=== PATIENT | female | born 1960 | race Caucasian/White ===

== ENCOUNTER 2018-09-28 03:55 | Inpatient (IN) | payer OTHER ==
[2018-09-28] MEDS ORDERED: NACL 0.9% 3 ML SYG IV (06:00)
[2018-09-28] MEDS ORDERED: ONDANSETRON 4 MG INJ IV (06:00)
[2018-09-28] MEDS ORDERED: NITROGLYCERIN (SL) 0.4 MG TAB SL (06:00)
[2018-09-28] MEDS ORDERED: ACETAMINOPHEN 325 MG TAB PO (06:00)
[2018-09-28] MEDS ORDERED: ALBUTEROL/IPRATROPIUM (NEB) 3 ML AMP HHN (06:00)
[2018-09-28 06:28] LABS: ADD MAN DIFF? NO
[2018-09-28 06:33] LABS: BASOPHILS % 0.4 % (0.0-2.0); EOSINOPHILS # 0.1 10^3/ul (0.0-0.5); EOSINOPHILS % 0.9 % (0.0-7.0); HEMATOCRIT 38.2 % (37.0-47.0); HEMOGLOBIN 12.7 g/dl (12.0-16.0); LYMPHOCYTES # 1.6 10^3/ul (0.8-2.9); LYMPHOCYTES % 21.9 % (15.0-51.0); MEAN CORPUSCULAR HEMOGLOBIN 28.9 pg (29.0-33.0); MEAN CORPUSCULAR HGB CONC 33.2 g/dl (32.0-37.0); MEAN PLATELET VOLUME 11.9 fl (7.4-10.4); MONOCYTE # 0.4 10^3/ul (0.3-0.9); MONOCYTES % 4.7 % (0.0-11.0); NEUTROPHIL # 5.3 10^3/ul (1.6-7.5); NEUTROPHILS % 71.8 % (39.0-77.0); PLATELET COUNT 268 10^3/UL (140-415); RED BLOOD COUNT 4.39 10^6/ul (4.20-5.40); RED CELL DISTRIBUTION WIDTH 13.2 % (11.5-14.5)
[2018-09-28 06:33] LABS: WHITE BLOOD COUNT 7.4 10^3/ul (4.8-10.8)
[2018-09-28 06:58] LABS: CREATINE KINASE 36 IU/L (23-200)
[2018-09-28 07:05] LABS: ALANINE AMINOTRANSFERASE 21 IU/L (13-69); ALBUMIN 4.1 g/dl (3.3-4.9); ALBUMIN/GLOBULIN RATIO 1.28; ALKALINE PHOSPHATASE 36 IU/L (42-121); ANION GAP 9 (5-13); ASPARTATE AMINO TRANSFERASE 17 IU/L (15-46); BILIRUBIN,INDIRECT 0.4 mg/dl (0-1.1); BILIRUBIN,TOTAL 0.4 mg/dl (0.2-1.3); BLOOD UREA NITROGEN 15 mg/dl (7-20); CALCIUM 9.7 mg/dl (8.4-10.2); CARBON DIOXIDE 28 mmol/L (21-31); CHLORIDE 106 mmol/L (97-110); CHOL/HDL RATIO 5.7 RATIO; CHOLESTEROL 212 mg/dl (100-200); CREATININE 0.67 mg/dl (0.44-1.00); Estimated GFR > 60 mL/min (>60); GLUCOSE 113 mg/dl (70-220); HDL CHOLESTEROL 37 mg/dl (35-98); LDL CHOLESTEROL,CALCULATED 156 mg/dl; POTASSIUM 4.1 mmol/L (3.5-5.1); SODIUM 143 mmol/L (135-144); TOTAL PROTEIN 7.3 g/dl (6.1-8.1); TRIGLYCERIDES 97 mg/dl (0-149)
[2018-09-28 07:12] LABS: CK INDEX 1.1; CK-MB 0.38 ng/ml (0.0-2.4); TROPONIN-I < 0.012 ng/ml (0.000-0.120)
[2018-09-28 07:31] LABS: HEMOGLOBIN A1C 5.5 % (0-5.9)
[2018-09-28] MEDS: ESCITALOPRAM 10 MG TAB PO (08:27)
[2018-09-28] MEDS: ASPIRIN 81 MG TAB PO (08:28)
[2018-09-28] MEDS: ENOXAPARIN 40 MG/0.4 ML SYG SC (08:35)
[2018-09-28] MEDS ORDERED: hydrALAzine 20 MG INJ IV (11:00)
[2018-09-28 12:02] LABS: CREATINE KINASE 36 IU/L (23-200)
[2018-09-28 12:23] LABS: CK-MB 0.36 ng/ml (0.0-2.4); TROPONIN-I < 0.012 ng/ml (0.000-0.120)
[2018-09-28 12:30] LABS: CREATINE KINASE 35 IU/L (23-200)
[2018-09-28] MEDS: METOPROLOL 50 MG TAB PO (12:33)
[2018-09-28 12:42] LABS: CK INDEX 1.1; TROPONIN-I < 0.012 ng/ml (0.000-0.120)
[2018-09-28] MEDS ORDERED: METOPROLOL 5 MG INJ (13:59)
[2018-09-28] MEDS ORDERED: NITROGLYCERIN AEROSOL (4.9 GM) (13:59)
[2018-09-28] MEDS: SOD CHLORIDE 0.9% 100 ML (14:15)
[2018-09-28] MEDS: IOHEXOL 100 ML (14:15)
[2018-09-28] MEDS ORDERED: ZOLPIDEM 5 MG TAB (21:43)
[2018-09-28] MEDS: ZOLPIDEM 5 MG TAB PO (22:03)
[2018-09-28] MEDS: ATORVASTATIN 20 MG TAB PO (22:03)
[2018-09-29 06:07] LABS: ADD MAN DIFF? NO
[2018-09-29 06:09] LABS: WHITE BLOOD COUNT 5.7 10^3/ul (4.8-10.8)
[2018-09-29 06:09] LABS: BASOPHILS % 0.5 % (0.0-2.0); EOSINOPHILS # 0.1 10^3/ul (0.0-0.5); EOSINOPHILS % 1.4 % (0.0-7.0); HEMATOCRIT 36.6 % (37.0-47.0); HEMOGLOBIN 12.3 g/dl (12.0-16.0); LYMPHOCYTES # 2.3 10^3/ul (0.8-2.9); LYMPHOCYTES % 40.7 % (15.0-51.0); MEAN CORPUSCULAR HEMOGLOBIN 29.4 pg (29.0-33.0); MEAN CORPUSCULAR HGB CONC 33.6 g/dl (32.0-37.0); MEAN CORPUSCULAR VOLUME 87.4 fl (82.0-101.0); MEAN PLATELET VOLUME 11.5 fl (7.4-10.4); MONOCYTE # 0.3 10^3/ul (0.3-0.9); MONOCYTES % 5.9 % (0.0-11.0); NEUTROPHIL # 2.9 10^3/ul (1.6-7.5); NEUTROPHILS % 51.3 % (39.0-77.0); PLATELET COUNT 260 10^3/UL (140-415); RED BLOOD COUNT 4.19 10^6/ul (4.20-5.40); RED CELL DISTRIBUTION WIDTH 13.6 % (11.5-14.5)
[2018-09-29 06:48] LABS: ANION GAP 9 (5-13); BLOOD UREA NITROGEN 15 mg/dl (7-20); CALCIUM 9.3 mg/dl (8.4-10.2); CARBON DIOXIDE 27 mmol/L (21-31); CHLORIDE 107 mmol/L (97-110); CREATININE 0.69 mg/dl (0.44-1.00); Estimated GFR > 60 mL/min (>60); GLUCOSE 103 mg/dl (70-220); MAGNESIUM 2.2 mg/dl (1.7-2.5); POTASSIUM 3.7 mmol/L (3.5-5.1); SODIUM 143 mmol/L (135-144)
[2018-09-29] MEDS: ENOXAPARIN 40 MG/0.4 ML SYG SC (08:52)
[2018-09-29] MEDS: ESCITALOPRAM 10 MG TAB PO (08:55)
[2018-09-29] MEDS: ASPIRIN 81 MG TAB PO (08:55)
[2018-09-29] MEDS ORDERED: DIAZEPAM 5 MG TAB PO (11:00)
[2018-09-29] MEDS ORDERED: FENTAnyl 50 MCG/ML VIAL (11:55)
[2018-09-29] MEDS ORDERED: LIDOCAINE 1% (MDV) 20 ML INJ (11:55)
[2018-09-29] MEDS ORDERED: HEPARIN 1000 UNITS/ML 10 ML INJ (11:55)
[2018-09-29] MEDS ORDERED: VERAPAMIL 5 MG INJ (11:55)
[2018-09-29] MEDS ORDERED: IODIXANOL LOCM 100 ML BTL (11:55)
[2018-09-29] MEDS ORDERED: MIDAZOLAM 1 MG/ML 2 ML INJ (11:55)
[2018-09-29] MEDS ORDERED: NITROGLYCERIN (IC) 100 MCG/ML INJ (11:56)
[2018-09-29] MEDS: SOD CHLORIDE 0.9% 1,000 ML IV (13:34)
== END 2018-09-29 17:28 | disposition home or self-care (01) | DRG 287 ==
LOC: 6WM 03:55
PROC: 4A023N7 Measurement of Cardiac Sampling and Pressure, Left Heart, Percutaneous Approach (ICD-10-PCS; principal; 2018-09-29)
PROC: B2011ZZ Plain Radiography of Multiple Coronary Arteries using Low Osmolar Contrast (ICD-10-PCS; 2018-09-29)
PROC: B2051ZZ Plain Radiography of Left Heart using Low Osmolar Contrast (ICD-10-PCS; 2018-09-29)
DX: R07.9 Chest pain, unspecified (principal); Z68.41 Body mass index [BMI] 40.0-44.9, adult; E66.01 Morbid (severe) obesity due to excess calories; F32.9 Major depressive disorder, single episode, unspecified; R06.02 Shortness of breath; F41.9 Anxiety disorder, unspecified; I25.10 Atherosclerotic heart disease of native coronary artery without angina pectoris
CPT/HCPCS: 71046; 75574; 80048; 80053; 80061; 82550; 82553; 83036; 83735; 84100; 84443; 84484; 85025; 87081; 93005; 93306; 93458; 97162

== ENCOUNTER 2018-10-11 08:31 | Inpatient (IN) | payer OTHER ==
[2018-10-11 09:24] LABS: ADD MAN DIFF? NO
[2018-10-11] MEDS: LACTATED RINGER'S 1,000 ML IV (09:24)
[2018-10-11] MEDS: ONDANSETRON 4 MG INJ IV (09:24)
[2018-10-11] MEDS: KETOROLAC 15 MG INJ IV (09:25)
[2018-10-11 09:27] LABS: BASOPHILS % 0.3 % (0.0-2.0); EOSINOPHILS # 0.1 10^3/ul (0.0-0.5); EOSINOPHILS % 0.9 % (0.0-7.0); HEMATOCRIT 36.9 % (37.0-47.0); HEMOGLOBIN 12.4 g/dl (12.0-16.0); LYMPHOCYTES # 1.6 10^3/ul (0.8-2.9); LYMPHOCYTES % 22.5 % (15.0-51.0); MEAN CORPUSCULAR HEMOGLOBIN 29.6 pg (29.0-33.0); MEAN CORPUSCULAR HGB CONC 33.6 g/dl (32.0-37.0); MEAN CORPUSCULAR VOLUME 88.1 fl (82.0-101.0); MEAN PLATELET VOLUME 11.6 fl (7.4-10.4); MONOCYTE # 0.5 10^3/ul (0.3-0.9); MONOCYTES % 6.7 % (0.0-11.0); NEUTROPHIL # 4.8 10^3/ul (1.6-7.5); NEUTROPHILS % 69.3 % (39.0-77.0); PLATELET COUNT 252 10^3/UL (140-415); RED BLOOD COUNT 4.19 10^6/ul (4.20-5.40); RED CELL DISTRIBUTION WIDTH 13.1 % (11.5-14.5)
[2018-10-11 09:33] LABS: INR 1.52; PROTIME 18.4 Sec (11.9-14.9); PT RATIO 1.4
[2018-10-11 09:58] LABS: ALANINE AMINOTRANSFERASE 136 IU/L (13-69); ALBUMIN 4.1 g/dl (3.3-4.9); ALKALINE PHOSPHATASE 113 IU/L (42-121); ANION GAP 10 (5-13); ASPARTATE AMINO TRANSFERASE 242 IU/L (15-46); BILIRUBIN,INDIRECT 0.5 mg/dl (0-1.1); BILIRUBIN,TOTAL 0.5 mg/dl (0.2-1.3); BLOOD UREA NITROGEN 14 mg/dl (7-20); CARBON DIOXIDE 26 mmol/L (21-31); CHLORIDE 106 mmol/L (97-110); CREATININE 0.76 mg/dl (0.44-1.00); Estimated GFR > 60 mL/min (>60); GLUCOSE 124 mg/dl (70-220); LIPASE 95 U/L (23-300); POTASSIUM 4.1 mmol/L (3.5-5.1); SODIUM 142 mmol/L (135-144); TOTAL PROTEIN 7.8 g/dl (6.1-8.1)
[2018-10-11 10:09] LABS: TROPONIN-I < 0.012 ng/ml (0.000-0.120)
[2018-10-11 12:04] LABS: ADD UMIC YES; UR ASCORBIC ACID NEGATIVE (NEGATIVE); UR BACTERIA MANY /HPF (NONE SEEN); UR BILIRUBIN (Dip) NEGATIVE (NEGATIVE); UR BLOOD (Dip) NEGATIVE (NEGATIVE); UR CLARITY SLIGHTLY CLOUDY (CLEAR); UR COLOR YELLOW (YELLOW); UR GLUCOSE (Dip) NEGATIVE (NEGATIVE); UR KETONES (Dip) NEGATIVE (NEGATIVE); UR LEUKOCYTE ESTERASE (Dip) TRACE Leu/ul (NEGATIVE); UR MUCUS FEW /HPF (NONE SEEN); UR NITRITE (Dip) NEGATIVE (NEGATIVE); UR RBC 1 /HPF (0-5); UR SPECIFIC GRAVITY (Dip) 1.004 (1.003-1.030); UR SQUAMOUS EPITHELIAL CELL FEW /HPF (FEW); UR TOTAL PROTEIN (Dip) NEGATIVE (NEGATIVE); UR UROBILINOGEN (Dip) 2+ mg/dL (NEGATIVE); UR WBC 4 /HPF (0-5)
[2018-10-11] MEDS ORDERED: NITROGLYCERIN (SL) 0.4 MG TAB SL (14:30)
[2018-10-11] MEDS ORDERED: hydrALAzine 20 MG INJ IV (14:30)
[2018-10-11] MEDS ORDERED: NACL 0.9% 3 ML SYG IV (14:30)
[2018-10-11] MEDS ORDERED: DOCUSATE SODIUM 100 MG CAP PO (14:30)
[2018-10-11] MEDS ORDERED: ALBUTEROL/IPRATROPIUM (NEB) 3 ML AMP HHN (14:30)
[2018-10-11] MEDS ORDERED: MAGNESIUM HYDROXIDE 30ML CUP PO (14:30)
[2018-10-11] MEDS ORDERED: LORAZEPAM 2 MG INJ IV (14:30)
[2018-10-11] MEDS ORDERED: ACETAMINOPHEN 325 MG TAB PO (14:30)
[2018-10-11 15:03] LABS: FREE T4 (FREE THYROXINE) 1.28 ng/dl (0.64-1.79)
[2018-10-11] MEDS: SOD CHLORIDE 0.45% 1,000 ML IV (15:17)
[2018-10-11] MEDS: CEFTRIAXONE 1 GM/50 ML (PMX) 50 ML IVPB (15:47)
[2018-10-11] MEDS: ATORVASTATIN 10 MG TAB PO (22:05)
[2018-10-11] MEDS: ATENOLOL 25 MG TAB PO (22:05)
[2018-10-11] MEDS: HEPARIN 5,000 UNIT/1 ML VIAL SC (22:20)
[2018-10-12] MEDS ORDERED: EPHEDrine 25 MG/5 ML SYG IV (01:10)
[2018-10-12] MEDS: SOD CHLORIDE 0.45% 1,000 ML IV ×3 (03:47→16:26)
[2018-10-12] MEDS: PANTOPRAZOLE (EC) 40 MG TAB PO (05:29)
[2018-10-12 05:34] LABS: ADD MAN DIFF? NO
[2018-10-12 05:36] LABS: BASOPHILS % 0.5 % (0.0-2.0); EOSINOPHILS # 0.1 10^3/ul (0.0-0.5); EOSINOPHILS % 1.9 % (0.0-7.0); HEMATOCRIT 33.9 % (37.0-47.0); HEMOGLOBIN 11.5 g/dl (12.0-16.0); LYMPHOCYTES # 1.3 10^3/ul (0.8-2.9); LYMPHOCYTES % 29.4 % (15.0-51.0); MEAN CORPUSCULAR HEMOGLOBIN 29.9 pg (29.0-33.0); MEAN CORPUSCULAR HGB CONC 33.9 g/dl (32.0-37.0); MEAN CORPUSCULAR VOLUME 88.3 fl (82.0-101.0); MEAN PLATELET VOLUME 12.1 fl (7.4-10.4); MONOCYTE # 0.2 10^3/ul (0.3-0.9); MONOCYTES % 5.1 % (0.0-11.0); NEUTROPHIL # 2.7 10^3/ul (1.6-7.5); NEUTROPHILS % 62.6 % (39.0-77.0); PLATELET COUNT 218 10^3/UL (140-415); RED BLOOD COUNT 3.84 10^6/ul (4.20-5.40); RED CELL DISTRIBUTION WIDTH 13.3 % (11.5-14.5)
[2018-10-12 05:36] LABS: WHITE BLOOD COUNT 4.3 10^3/ul (4.8-10.8)
[2018-10-12 05:48] LABS: HEMOGLOBIN A1C 5.4 % (0-5.9)
[2018-10-12 06:01] LABS: CHOL/HDL RATIO 2.9 RATIO; HDL CHOLESTEROL 35 mg/dl (35-98); LDL CHOLESTEROL,CALCULATED 50 mg/dl; TRIGLYCERIDES 85 mg/dl (0-149)
[2018-10-12 06:01] LABS: CHOLESTEROL 102 mg/dl (100-200)
[2018-10-12 06:03] LABS: ANION GAP 5 (5-13); BLOOD UREA NITROGEN 10 mg/dl (7-20); CALCIUM 8.4 mg/dl (8.4-10.2); CARBON DIOXIDE 29 mmol/L (21-31); CHLORIDE 107 mmol/L (97-110); CREATININE 0.82 mg/dl (0.44-1.00); Estimated GFR > 60 mL/min (>60); GLUCOSE 93 mg/dl (70-220); MAGNESIUM 2.1 mg/dl (1.7-2.5); PHOSPHORUS 3.3 mg/dl (2.5-4.9); POTASSIUM 3.7 mmol/L (3.5-5.1); SODIUM 141 mmol/L (135-144)
[2018-10-12] MEDS: ACETAMINOPHEN 500 MG TAB PO (06:33)
[2018-10-12] MEDS ORDERED: LIDOCAINE 2% (SDV) 5 ML INJ (07:23)
[2018-10-12] MEDS ORDERED: PROPOFOL 40 ML (07:23)
[2018-10-12] MEDS ORDERED: MIDAZOLAM 1 MG/ML 2 ML INJ (07:23)
[2018-10-12] MEDS ORDERED: ROPIVACAINE 0.5 % 30 ML VIAL (07:23)
[2018-10-12] MEDS ORDERED: FENTAnyl 50 MCG/ML VIAL (07:23)
[2018-10-12] MEDS ORDERED: ONDANSETRON 4 MG INJ (07:23)
[2018-10-12] MEDS ORDERED: ROCURONIUM 50 MG INJ (07:24)
[2018-10-12] MEDS ORDERED: FAMOTIDINE 20 MG INJ (07:24)
[2018-10-12] MEDS ORDERED: DIPHENHYDRAMINE 50 MG INJ IV (07:30)
[2018-10-12] MEDS ORDERED: morphine 2 MG INJ IV ×3 (07:30→09:00)
[2018-10-12] MEDS ORDERED: HYDROmorphONE 1 MG/5 ML IV SYRINGE IV ×3 (07:30)
[2018-10-12] MEDS ORDERED: ONDANSETRON 4 MG INJ IV ×2 (07:30→09:00)
[2018-10-12] MEDS ORDERED: OXYCODONE/ACETAMINOPHEN (5/325) TAB PO ×3 (07:30→09:00)
[2018-10-12] MEDS ORDERED: FENTAnyl 50 MCG/ML VIAL IV ×2 (07:30)
[2018-10-12] MEDS ORDERED: ALBUTEROL 0.083% (NEB) 2.5 MG/3 ML AMP HHN (07:30)
[2018-10-12] MEDS ORDERED: LABETALOL HCL 20MG INJ IV (07:30)
[2018-10-12] MEDS ORDERED: SUGAMMADEX SODIUM 200 MG/2 ML VIAL IV (07:56)
[2018-10-12] MEDS: BUPIVACAINE 0.25% (MPF) 30 ML INJ (08:05)
[2018-10-12] MEDS ORDERED: MAGNESIUM SULFATE 1 GM/D5W 100 ML (08:22)
[2018-10-12] MEDS: ATENOLOL 25 MG TAB PO ×2 (09:00→20:15)
[2018-10-12] MEDS: ESCITALOPRAM 10 MG TAB PO (09:00)
[2018-10-12] MEDS: POTASSIUM CHLORIDE (SR) 8 MEQ CAP PO (09:00)
[2018-10-12] MEDS: BUPROPION (SR) 150 MG TAB PO (09:00)
[2018-10-12] MEDS: HEPARIN 5,000 UNIT/1 ML VIAL SC ×2 (09:00→20:15)
[2018-10-12] MEDS: MEPERIDINE 25 MG INJ IV (09:27)
[2018-10-12] MEDS: ONDANSETRON 4 MG INJ IV (09:27)
[2018-10-12] MEDS: CEFTRIAXONE 1 GM/50 ML (PMX) 50 ML IVPB (14:56)
[2018-10-12] MEDS: HYDROCODONE/APAP (5/325) TAB PO (16:54)
[2018-10-12] MEDS: ATORVASTATIN 10 MG TAB PO (20:14)
[2018-10-12] MEDS ORDERED: ZOLPIDEM 5 MG TAB PO (21:00)
[2018-10-12] MEDS: OXYCODONE/ACETAMINOPHEN (5/325) TAB PO (21:53)
[2018-10-12] MEDS: morphine 2 MG INJ IV (23:13)
[2018-10-13] MEDS: HYDROCODONE/APAP (5/325) TAB PO ×2 (02:57→18:33)
[2018-10-13] MEDS: SOD CHLORIDE 0.45% 1,000 ML IV ×2 (02:58→19:47)
[2018-10-13 05:05] LABS: ADD MAN DIFF? NO
[2018-10-13 05:11] LABS: WHITE BLOOD COUNT 5.8 10^3/ul (4.8-10.8)
[2018-10-13 05:11] LABS: BASOPHILS % 0.3 % (0.0-2.0); EOSINOPHILS # 0.1 10^3/ul (0.0-0.5); EOSINOPHILS % 1.6 % (0.0-7.0); HEMATOCRIT 32.7 % (37.0-47.0); HEMOGLOBIN 10.7 g/dl (12.0-16.0); LYMPHOCYTES # 1.6 10^3/ul (0.8-2.9); MEAN CORPUSCULAR HEMOGLOBIN 29.4 pg (29.0-33.0); MEAN CORPUSCULAR HGB CONC 32.7 g/dl (32.0-37.0); MEAN CORPUSCULAR VOLUME 89.8 fl (82.0-101.0); MONOCYTE # 0.3 10^3/ul (0.3-0.9); MONOCYTES % 5.4 % (0.0-11.0); NEUTROPHIL # 3.7 10^3/ul (1.6-7.5); NEUTROPHILS % 64.5 % (39.0-77.0); PLATELET COUNT 209 10^3/UL (140-415); RED BLOOD COUNT 3.64 10^6/ul (4.20-5.40); RED CELL DISTRIBUTION WIDTH 13.3 % (11.5-14.5)
[2018-10-13 05:32] LABS: ALANINE AMINOTRANSFERASE 468 IU/L (13-69); ALBUMIN 3.3 g/dl (3.3-4.9); ALKALINE PHOSPHATASE 119 IU/L (42-121); ANION GAP 5 (5-13); ASPARTATE AMINO TRANSFERASE 258 IU/L (15-46); BILIRUBIN,INDIRECT 0.6 mg/dl (0-1.1); BILIRUBIN,TOTAL 0.6 mg/dl (0.2-1.3); BLOOD UREA NITROGEN 12 mg/dl (7-20); CALCIUM 8.2 mg/dl (8.4-10.2); CARBON DIOXIDE 29 mmol/L (21-31); CHLORIDE 107 mmol/L (97-110); CREATININE 0.76 mg/dl (0.44-1.00); Estimated GFR > 60 mL/min (>60); GLUCOSE 104 mg/dl (70-220); POTASSIUM 3.8 mmol/L (3.5-5.1); SODIUM 141 mmol/L (135-144); TOTAL PROTEIN 6.3 g/dl (6.1-8.1)
[2018-10-13] MEDS: PANTOPRAZOLE (EC) 40 MG TAB PO (06:00)
[2018-10-13] MEDS: HEPARIN 5,000 UNIT/1 ML VIAL SC ×2 (09:00→21:00)
[2018-10-13] MEDS: ESCITALOPRAM 10 MG TAB PO (09:46)
[2018-10-13] MEDS: ATENOLOL 25 MG TAB PO ×2 (09:46→22:19)
[2018-10-13] MEDS: POTASSIUM CHLORIDE (SR) 8 MEQ CAP PO (09:46)
[2018-10-13] MEDS: BUPROPION (SR) 150 MG TAB PO (09:46)
[2018-10-13] MEDS: OXYCODONE/ACETAMINOPHEN (5/325) TAB PO (12:03)
[2018-10-13] MEDS: CEFTRIAXONE 1 GM/50 ML (PMX) 50 ML IVPB (16:15)
[2018-10-13] MEDS: ATORVASTATIN 10 MG TAB PO (22:18)
[2018-10-13] MEDS: morphine 2 MG INJ IV (22:26)
[2018-10-14] MEDS: SOD CHLORIDE 0.45% 1,000 ML IV ×2 (00:04→09:07)
[2018-10-14] MEDS: PANTOPRAZOLE (EC) 40 MG TAB PO (05:55)
[2018-10-14 07:51] LABS: ADD MAN DIFF? NO
[2018-10-14 07:58] LABS: BASOPHILS % 0.5 % (0.0-2.0); EOSINOPHILS # 0.2 10^3/ul (0.0-0.5); EOSINOPHILS % 3.1 % (0.0-7.0); HEMATOCRIT 33.9 % (37.0-47.0); HEMOGLOBIN 11.1 g/dl (12.0-16.0); LYMPHOCYTES # 1.9 10^3/ul (0.8-2.9); LYMPHOCYTES % 29.1 % (15.0-51.0); MEAN CORPUSCULAR HEMOGLOBIN 29.4 pg (29.0-33.0); MEAN CORPUSCULAR HGB CONC 32.7 g/dl (32.0-37.0); MEAN CORPUSCULAR VOLUME 89.7 fl (82.0-101.0); MEAN PLATELET VOLUME 12.1 fl (7.4-10.4); MONOCYTE # 0.4 10^3/ul (0.3-0.9); MONOCYTES % 5.6 % (0.0-11.0); NEUTROPHIL # 3.9 10^3/ul (1.6-7.5); NEUTROPHILS % 61.4 % (39.0-77.0); PLATELET COUNT 238 10^3/UL (140-415); RED BLOOD COUNT 3.78 10^6/ul (4.20-5.40); RED CELL DISTRIBUTION WIDTH 13.1 % (11.5-14.5)
[2018-10-14 07:58] LABS: WHITE BLOOD COUNT 6.4 10^3/ul (4.8-10.8)
[2018-10-14 08:18] LABS: ANION GAP 7 (5-13); BLOOD UREA NITROGEN 9 mg/dl (7-20); CALCIUM 8.3 mg/dl (8.4-10.2); CARBON DIOXIDE 27 mmol/L (21-31); CHLORIDE 107 mmol/L (97-110); CREATININE 0.67 mg/dl (0.44-1.00); Estimated GFR > 60 mL/min (>60); GLUCOSE 104 mg/dl (70-220); POTASSIUM 3.8 mmol/L (3.5-5.1); SODIUM 141 mmol/L (135-144)
[2018-10-14] MEDS: HEPARIN 5,000 UNIT/1 ML VIAL SC (09:00)
[2018-10-14 09:06] LABS: ALANINE AMINOTRANSFERASE 307 IU/L (13-69); ALBUMIN 3.2 g/dl (3.3-4.9); ALKALINE PHOSPHATASE 120 IU/L (42-121); ASPARTATE AMINO TRANSFERASE 102 IU/L (15-46); BILIRUBIN,INDIRECT 0.4 mg/dl (0-1.1); BILIRUBIN,TOTAL 0.4 mg/dl (0.2-1.3); TOTAL PROTEIN 6.1 g/dl (6.1-8.1)
[2018-10-14] MEDS: BUPROPION (SR) 150 MG TAB PO (09:33)
[2018-10-14] MEDS: ATENOLOL 25 MG TAB PO (09:33)
[2018-10-14] MEDS: POTASSIUM CHLORIDE (SR) 8 MEQ CAP PO (09:33)
[2018-10-14] MEDS: ESCITALOPRAM 10 MG TAB PO (09:33)
== END 2018-10-14 10:35 | disposition home or self-care (01) | DRG 418 ==
LOC: E/R 08:31 → 2NE 10:44
PROC: 0FT44ZZ Resection of Gallbladder, Percutaneous Endoscopic Approach (ICD-10-PCS; principal; 2018-10-12 07:30)
DX: K81.0 Acute cholecystitis (principal); Z68.41 Body mass index [BMI] 40.0-44.9, adult; E66.01 Morbid (severe) obesity due to excess calories; F32.9 Major depressive disorder, single episode, unspecified; I10 Essential (primary) hypertension; I25.10 Atherosclerotic heart disease of native coronary artery without angina pectoris
CPT/HCPCS: 36415; 76705; 80048; 80053; 80061; 80076; 81001; 83036; 83690; 83735; 84100; 84439; 84443; 84484; 85025; 85610; 85730; 88304; 93005; 96374; 96375; 97162; 99285-25

== ENCOUNTER 2019-02-08 05:43 | Day surgery (SDC) | payer OTHER ==
[2019-02-08] MEDS ORDERED: PROPOFOL 40 ML (08:39)
[2019-02-08] MEDS ORDERED: KETAMINE (50 MG/ML) 10 ML VIAL (08:42)
== END 2019-02-08 18:06 | disposition home or self-care (01) ==
LOC: GIL 05:43
DX: Z12.11 Encounter for screening for malignant neoplasm of colon (principal); K64.8 Other hemorrhoids; K57.30 Diverticulosis of large intestine without perforation or abscess without bleeding; K44.9 Diaphragmatic hernia without obstruction or gangrene; K21.0 Gastro-esophageal reflux disease with esophagitis
CPT/HCPCS: 43239; 88305